=== PATIENT | male | born 1990 | race Caucasian/White ===

== ENCOUNTER 2023-04-28 17:41 | Emergency (ER) | payer BC ==
[~2023-04-28] VITALS: Ht 175.3 cm; Wt 86.2 kg
[2023-04-28 19:13] LABS: BASOPHILS % (AUTO) 0.3 % (0.0-2.0); EOSINOPHILS % (AUTO) 0.1 % (0.0-6.0); HEMATOCRIT 44 % (39-51); HEMOGLOBIN 15.1 g/dL (13.5-17.5); LYMPHOCYTES # (AUTO) 0.7 K/uL (0.8-4.8); LYMPHOCYTES % (AUTO) 11.1 % (20.0-44.0); MEAN CORPUSCULAR HEMOGLOBIN 30 PG (26.0-33.0); MEAN CORPUSCULAR HGB CONC 35 g/dl (31.0-36.0); MEAN CORPUSCULAR VOLUME 87 fL (80-96); MONOCYTES # (AUTO) 0.5 K/uL (0.1-1.30); MONOCYTES % (AUTO) 6.9 % (2.0-12.0); NEUTROPHILS # (AUTO) 5.5 K/uL (1.8-8.9); NEUTROPHILS % (AUTO) 81.6 % (43.0-81.0); PLATELET COUNT (AUTO) 271 K/uL (150-450); RED BLOOD CELL COUNT(AUTO) 5.03 MIL/uL (4.5-6.0); RED CELL DISTRIBUTION WIDTH 12.1 % (11.5-15.0); WHITE BLOOD COUNT (AUTO) 6.7 K/uL (4.3-11.0)
[2023-04-28] MEDS ORDERED: KETOROLAC TROMETHAMINE 15 MG/ML VIAL ONE (19:18)
[2023-04-28] MEDS ORDERED: ONDANSETRON HCL/PF 4 MG/2 ML VIAL ONE (19:18)
[2023-04-28 19:20] LABS: CALCIUM, SERUM 8.9 mg/dL (8.5-10.1); CREATININE 0.9 mg/dL (0.6-1.3); POTASSIUM 3.6 mmol/L (3.5-5.1)
[2023-04-28 19:26] LABS: ALBUMIN 4.2 g/dL (3.4-5.0); BILIRUBIN,DIRECT 0.4 mg/dL (0.0-0.2); BILIRUBIN,TOTAL 2.4 mg/dL (0.2-1.0); TOTAL PROTEIN, SERUM 7.6 g/dL (6.4-8.2)
[2023-04-28] MEDS: KETOROLAC TROMETHAMINE 15 MG/ML VIAL IV ONE (19:35)
[2023-04-28] MEDS: ONDANSETRON HCL/PF 4 MG/2 ML VIAL IVP ONE (19:35)
[2023-04-28] MEDS: IV NS 0.9% 1,000 ML BAG IV ONE (19:36)
[2023-04-28] MEDS ORDERED: MORPHINE SULFATE INJ 4 MG/ML DISP.SYRIN ONE (20:41)
[2023-04-28] MEDS ORDERED: ACETAMINOPHEN ES 500 MG TABLET ONE (21:09)
[2023-04-28] MEDS ORDERED: FAMO20TA8 PO (21:12)
[2023-04-28] MEDS ORDERED: IBUP-1957 PO (21:12)
[2023-04-28] MEDS: ACETAMINOPHEN 325 MG TABLET PO ONE (21:13)
[2023-04-28] MEDS: MORPHINE SULFATE INJ 4 MG/ML DISP.SYRIN IV ONE (21:21)
[2023-04-29 03:42] VITALS: BP 129/69; TEMP 98.1; O2SAT 98
== END 2023-04-28 21:30 | disposition home or self-care (01) ==
LOC: ER 17:41
DX: I88.0 Nonspecific mesenteric lymphadenitis (principal); R10.32 Left lower quadrant pain; Z20.822 Contact with and (suspected) exposure to COVID-19
CPT/HCPCS: 99285; 74176; 96374; 96361; 96375; 87426; 93005; 87804 ×2; 85025; 80048; 83690; 80076; 36415; J2405; J7030; J1885; J2270